=== PATIENT | male | born 1985 | race Caucasian/White ===

== ENCOUNTER → 2024-10-17 | Outpatient (CLI) | payer BC ==
--- NOTE | 2024-10-17 11:24 | CA ---
Exercise Stress Test Report Name: Trent Anguiano Exam Date: 10/17/2024 08:44 Exam Location: [facility] Ht (in): 72 Wt (lb): 262 BSA: 2.39 Ordering Phys: Ceasar Hernandez MD Referring Phys: Jeannette Forman [facility] Technologist: Alexandre Zamora Age: 39 Gender: M : 1985 Procedure CPT: Indications: Z91.89 PERS RISK FACTORS ICD-10 Codes: Patient History: CHEST PAIN, HTN, DIABETES, FAMILY HX OF HEART DISEASE, CURRENT SMOKER Medications: HZTZ, METFORMIN, OZEMPIC, AMLODIPINE Meds past 24 hrs: Pretest Chest Pain: STRESS TEST Michael Protocol Exercise Duration (min:sec): 09:[address] Depressions (mm): Angina Score: Sanchez Score: Resting HR (bpm): 84 Peak HR (bpm): 153 Resting BP (mmHg): 128 / 90 Peak BP (mmHg): 177 / 82 MPHR: 181 Target HR: 154 % MPHR: 85 METS: 10.3 Total Dose: Peak Dose: Atropine: Double Product: 31214 BP Response: Stress Termination: TARGET HR/MAX EXERTION Stress Symptoms: DYSPNEA Stress Summary: ECG ANALYSIS Resting ECG: Stress ECG: CONCLUSIONS Excellent exercise tolerance. The patient exercised for 9 minutes on Michael protocol Excellent augmentation in the blood pressure and heart rate in response to exercise Normal electrocardiogram in response to exercise Essentially normal stress test Dr. Cole Holliday MD (Electronically Signed) Final Date: 17 October 2024 11:23
== END | disposition home or self-care (01) ==
LOC: RADNMMAIN 08:23
PROVIDERS: ATTEND Family Medicine
DX: I10 Essential (primary) hypertension (principal); Z91.89 Other specified personal risk factors, not elsewhere classified; E11.9 Type 2 diabetes mellitus without complications; Z82.49 Family history of ischemic heart disease and other diseases of the circulatory system; F17.200 Nicotine dependence, unspecified, uncomplicated; R07.9 Chest pain, unspecified
CPT/HCPCS: 93017

== ENCOUNTER 2025-02-10 09:56 | Day surgery (SDC) | payer BC ==
[2025-02-10] MEDS: LACTATED RINGERS 1,000 ML IV ONE (10:20)
[2025-02-10 10:29] LABS: Glucose,Whole Blood 126 mg/dL (70-110)
[2025-02-10 10:31] VITALS: TEMP 98
[2025-02-10] MEDS ORDERED: PROPOFOL 10 MG/ML 20 ML VIAL IV ONE (11:34)
--- NOTE | 2025-02-10 11:50 | P.PCN ---
Date of Procedure: 02/10/25 Procedure(s) Performed: BRIEF HISTORY: Patient is a 39-year-old pleasant white male scheduled for an elective colonoscopy as a part of evaluation of intermittent rectal bleeding for last 2 weeks duration. PROCEDURE PERFORMED: Colonoscopy. PREOPERATIVE DIAGNOSIS: Intermittent rectal bleeding. IV sedation per Anesthesia. PROCEDURE: After informed consent was obtained, the patient, was brought into the endoscopy unit. IV sedation was administered by Anesthesia under continuous monitoring. Digital rectal examination was normal. Initially the Olympus CF-160 flexible video colonoscope was then inserted in the rectum, gradually advanced into the cecum without any difficulty. Careful examination was performed as the scope was gradually being withdrawn. Ileocecal valve and the appendiceal orifice were visualized and appeared normal. Prep was excellent. Mucosa of the cecum, ascending colon, transverse colon, descending colon, sigmoid colon, and rectum appeared normal. Retroflexion was performed in the rectum and small internal hemorrhoids were seen. The patient tolerated the procedure well. IMPRESSION: Normal-appearing colon from rectum to cecum with no evidence of colorectal neoplasia Small internal hemorrhoids. RECOMMENDATIONS: Findings of this examination were discussed with the patient as well as his family.. He was advised to be on a high-fiber diet and take fiber supplements on regular basis. Recommend repeat colonoscopy in 10 years.
[2025-02-10 12:01] VITALS: RESP 17
[2025-02-10 12:10] VITALS: BP 127/88; PULSE 67
== END 2025-02-10 12:25 | disposition home or self-care (01) ==
LOC: ORWHC2ENDO 09:56
PROVIDERS: ATTEND Internal Medicine Gastroenterology
DX: K62.5 Hemorrhage of anus and rectum (principal); K64.8 Other hemorrhoids; E11.9 Type 2 diabetes mellitus without complications; E78.5 Hyperlipidemia, unspecified; K21.9 Gastro-esophageal reflux disease without esophagitis; F17.290 Nicotine dependence, other tobacco product, uncomplicated; Z79.84 Long term (current) use of oral hypoglycemic drugs; Z79.899 Other long term (current) drug therapy; Z88.4 Allergy status to anesthetic agent; Z88.5 Allergy status to narcotic agent
CPT/HCPCS: 45378; J2704